=== PATIENT | female | born 1965 | race American Indian/Alaskan Native ===

== ENCOUNTER 2016-08-09 22:14 | Emergency (ER) | payer SELFPAY ==
[2016-08-09 22:52] LABS: Basophils % (Auto) 0.8 % (0.0-1.8); Eosinophils % (Auto) 2.6 % (0.0-4.3); Mean Corpuscular HGB Conc 33 % (30-34); Mean Corpuscular Hemoglobin 31 pg (28-32); Mean Corpuscular Volume 93 fl (79-97); Platelet Count 238 K/mm3 (140-440); Red Cell Distribution Width 13.5 % (13.2-15.2); White Blood Count 5.5 K/mm3 (4.5-11.0)
[2016-08-09 23:09] LABS: Alanine Aminotransferase 10 units/L (7-56); Albumin 4.3 g/dL (3.9-5); Albumin/Globulin Ratio 1.5 %; Alkaline Phosphatase 43 units/L (35-129); Anion Gap 17 mmol/L; BUN/Creatinine Ratio 17.77; Blood Urea Nitrogen 16 mg/dL (7-17); Calcium 9.6 mg/dL (8.4-10.2); Carbon Dioxide 27 mmol/L (22-30); Chloride 103.6 mmol/L (98-107); Glucose 102 mg/dL (65-100); Lipase 37 units/L (13-60); Potassium 4.5 mmol/L (3.6-5.0); Sodium 143 mmol/L (137-145); Total Protein 7.1 g/dL (6.3-8.2)
[2016-08-10 03:05] LABS: Bilirubin,Urine NEG (Negative); Blood,Urine SM (Negative); Ketones,Urine NEG (Negative); Leukocyte Esterase,Urine NEG (Negative); Nitrite,Urine NEG (Negative); Protein,Urine <15 mg/dL mg/dL (Negative); Urobilinogen,Urine < 2.0 mg/dL (<2.0)
[2016-08-10] MEDS ORDERED: ZOFRAN IV ONE (06:25)
[2016-08-10] MEDS ORDERED: MORPHINE IV ONE (06:25)
[2016-08-10] MEDS ORDERED: NACL ONE (06:32)
--- NOTE | 2016-08-10 07:00 | Emergency Department Report ---
ED Abdominal Pain HPI - General Chief Complaint: Abdominal Pain Stated Complaint: L SIDE ABD PAIN Time Seen by Provider: 08/10/16 06:10 Source: patient Mode of arrival: Ambulatory Limitations: No Limitations - History of Present Illness Initial Comments: 50-year-old female withno significant past medical history blood past surgical history appendectomy and tubal ligation presents to the hospital complains of left lower quadrant pain 2 months. Pain described as sharp, aching, and intermittent. Moderate to severe in intensity at times. Pain is becoming more frequent. Positive nausea. Patient denies other associated symptoms including fever, vomiting, dysuria, hematuria, weight loss, vaginal discharge, melena, hematochezia, diarrhea, or poor appetite. Last bm yesterday Severity scale (0 -10): 10 - Related Data Previous Rx's Medication Instructions Recorded Last Taken Type Ibuprofen [Motrin] 800 mg PO Q8HR PRN #30 tablet 08/10/16 Unknown Rx Polyethylene Glycol 3350 [Miralax 17 gm PO QDAY PRN #7 packet 08/10/16 Unknown Rx 3350] traMADol [Ultram 50 MG tab] 50 mg PO Q6HR PRN #14 tablet 08/10/16 Unknown Rx Allergies Allergy/AdvReac Type Severity Reaction Status Date / Time No Known Allergies Allergy Verified 08/10/16 06:37 ED Review of Systems ROS: Stated complaint: L SIDE ABD PAIN Other details as noted in HPI Comment: All other systems reviewed and negative Other: Constitutional: No fevers chills or weight loss Eyes: No eye pain visual changes or discharge ENT: No ear pain or throat pain Neck: Denies pain Respiratory: Denies cough wheezing shortness of breath at rest shortness of breath or exertion, orthopnea or PND Cardiovascular: Denies chest pain, palpitations, syncope Endocrine: Denies excessive sweating, intolerance to cold, increased thirst GI: Denies abdominal pain, nausea, vomiting, diarrhea, constipation : Denies dysuria, urinary frequency, or urgency Musculoskeletal: Denies back pain, joint swelling Skin: Denies rash, lesions, erythema Neurologic: Denies headache, numbness, weakness Psychiatric: Denies suicidal ideation, hallucinations Hematological/lymphatic: Denies easy bruising, lymphadenopathy ED Past Medical Hx - Past Medical History Previous Medical History?: No - Surgical History Past Surgical History?: Yes Hx Appendectomy: Yes Additional Surgical History: thyroidectomy, lipoma, tubaligation - Social History Smoking Status: Former Smoker Substance Use Type: None - Medications Home Medications: Home Medications Medication Instructions Recorded Confirmed Last Taken Type Ibuprofen [Motrin] 800 mg PO Q8HR PRN #30 tablet 08/10/16 Unknown Rx Polyethylene Glycol 3350 [Miralax 17 gm PO QDAY PRN #7 packet 08/10/16 Unknown Rx 3350] traMADol [Ultram 50 MG tab] 50 mg PO Q6HR PRN #14 tablet 08/10/16 Unknown Rx ED Physical Exam - General Limitations: No Limitations - Other Other exam information: General: No limitations, patient is alert in no acute distress Head exam: Atraumatic, normocephalic Eyes exam: Normal appearance, pupils equal reactive to light, extraocular movements intact ENT: Moist mucous membrane, normal oropharynx Neck exam: Normal inspection, full range of motion, no meningismus nontender Respiratory exam: Clear to auscultation bilateral, no wheezes, rales, crackles Cardiovascular: Normal rate and rhythm, normal heart sounds Abdomen: Soft, nondistended, left lower quadrant tenderness, with normal bowel sounds, no rebound, or guarding Extremity: Full range of motion normal inspection no deformity Back: Normal Inspection, full range of motion, no tenderness Neurologic: Alert, oriented x3, cranial nerves intact, no motor or sensory deficit Psychiatric: normal affect, normal mood Skin: Warm, dry, intact ED Course Vital Signs 08/09/16 08/10/16 08/10/16 22:20 03:29 03:46 Temperature 98.1 F 98.3 F Pulse Rate 60 80 Respiratory 18 16 Rate Blood Pressure 122/78 125/72 Blood Pressure 125/72 [Right] O2 Sat by Pulse 100 98 Oximetry 08/10/16 03:48 Temperature Pulse Rate Respiratory 16 Rate Blood Pressure Blood Pressure [Right] O2 Sat by Pulse 98 Oximetry - Reevaluation(s) Reevaluation #1: 08/10/16 07:01 Morphine and Zofran ordred for pain ED Medical Decision Making - Lab Data Result diagrams: 08/09/16 22:32 08/09/16 22:32 Lab Results 08/09/16 08/09/16 08/10/16 Range/Units 22:32 22:32 02:48 WBC 5.5 (4.5-11.0) K/mm3 RBC 4.20 (3.65-5.03) M/mm3 Hgb 13.0 (10.1-14.3) gm/dl Hct 39.0 (30.3-42.9) % MCV 93 (79-97) fl MCH 31 (28-32) pg MCHC 33 (30-34) % RDW 13.5 (13.2-15.2) % Plt Count 238 (140-440) K/mm3 Lymph % (Auto) 53.0 H (13.4-35.0) % [place] % (Auto) 6.6 (0.0-7.3) % Eos % (Auto) 2.6 (0.0-4.3) % Baso % (Auto) 0.8 (0.0-1.8) % Lymph # 2.9 (1.2-5.4) K/mm3 [place] # 0.4 (0.0-0.8) K/mm3 Eos # 0.1 (0.0-0.4) K/mm3 Baso # 0.0 (0.0-0.1) K/mm3 Seg Neutrophils % 37.0 L (40.0-70.0) % Seg Neutrophils # 2.1 (1.8-7.7) K/mm3 Sodium 143 (137-145) mmol/L Potassium 4.5 (3.6-5.0) mmol/L Chloride 103.6 (98-107) mmol/L Carbon Dioxide 27 (22-30) mmol/L Anion Gap 17 mmol/L BUN 16 (7-17) mg/dL Creatinine 0.9 (0.7-1.2) mg/dL Estimated GFR > 60 ml/min BUN/Creatinine Ratio 17.77 % Glucose 102 H (65-100) mg/dL Calcium 9.6 (8.4-10.2) mg/dL Total Bilirubin 0.20 (0.1-1.2) mg/dL AST 14 (5-40) units/L ALT 10 (7-56) units/L Alkaline Phosphatase 43 (35-129) units/L Total Protein 7.1 (6.3-8.2) g/dL Albumin 4.3 (3.9-5) g/dL Albumin/Globulin Ratio 1.5 % Lipase 37 (13-60) units/L Urine Color Yellow (Yellow) Urine Turbidity Clear (Clear) Urine pH 6.0 (5.0-7.0) Ur Specific [place] 1.016 (1.003-1.030) Urine Protein <15 mg/dl (Negative) mg/dL Urine Glucose (UA) Neg (Negative) mg/dL Urine Ketones Neg (Negative) mg/dL Urine Blood Sm (Negative) Urine Nitrite Neg (Negative) Urine Bilirubin Neg (Negative) Urine Urobilinogen < 2.0 (<2.0) mg/dL Ur Leukocyte Esterase Neg (Negative) Urine WBC (Auto) 1.0 (0.0-6.0) /HPF Urine RBC (Auto) 21.0 (0.0-6.0) /HPF U Epithel Cells (Auto) 1.0 (0-13.0) /HPF Urine HCG, Qual Negative (Negative) - Radiology Data Radiology results: report reviewed CT abdomen and pelvis IV contrast: Colonic constipation. 4 mm calculus in the region of the gallbladder neck no evidence of cholecystitis. Suspect fibroid uterus. Right ovary not seen. Tiny hepatic and splenic cyst - Medical Decision Making Patient has intrauterine fibroids with normal-appearing left ovary. She also be treated for constipation and informed of findings of cholelithiasis. Patient 's pain improved after meds. She will be discharged home and encouraged to follow-up with [facility] and PMD. No acute surgical or infectious emergency identified at this time and patient stable for outpatient follow-up - Differential Diagnosis diverticulitis, renal colic, ovarian cyst/mass Critical Care Time: No Critical care attestation.: If time is entered above; I have spent that time in minutes in the direct care of this critically ill patient, excluding procedure time. ED Disposition Clinical Impression: Fibroids, Cholelithiasis, Constipation Disposition: DISCHARGED TO HOME OR SELFCARE Is pt being admited?: No Does the pt Need Aspirin: No Condition: Stable Instructions: Constipation (ED), Biliary Colic (ED), Uterine Fibroids (ED) Additional Instructions: You have been provided ibuprofen and tramadol for pain. Please note that your CAT scan reveals constipation and tramadol may worsen constipation therefore, take only as needed for severe pain. CAT scan coincidently shows stones in the gallbladder. You don't have any symptoms of gallstones at this time. If symptoms develop please follow-up as indicated by your discharge papers. Your CAT scan also shows fibroids in your uterus. Please follow-up with [facility] for further management and outpatient ultrasound for further outpatient investigation Prescriptions: Ibuprofen [Motrin] 800 mg PO Q8HR PRN #30 tablet PRN Reason: Pain Polyethylene Glycol 3350 [Miralax 3350] 17 gm PO QDAY PRN #7 packet PRN Reason: Constipation traMADol [Ultram 50 MG tab] 50 mg PO Q6HR PRN #14 tablet PRN Reason: Pain Referrals: [facility] [Provider Group] - 3-5 Days (primary care clinic) GARCÍA MARTIN MD [Staff Physician] - 3-5 Days (bolt labeler doctor) AILIN SORENSEN MD [Staff Physician] - 3-5 Days (primary care doctor ) Time of Disposition: 08:04
--- NOTE | 2016-08-10 07:40 | Cat Scan Report ---
FINAL REPORT PROCEDURE: CT ABDOMEN PELVIS W CON TECHNIQUE: Computerized axial tomography of the abdomen and pelvis was performed after the IV injection of iodinated nonionic contrast. 100 milliliters Omnipaque 300 IV contrast was given. HISTORY: llq pain x 2 months COMPARISON: None FINDINGS: Visualized lower thorax: No significant abnormality. Liver: 5 millimeter dome cyst. Spleen: 5 millimeters cyst. Gallbladder and biliary system: 4 millimeter calculus in the region of the gallbladder neck. No evident cholecystitis or biliary ductal obstruction. Pancreas: Normal. Adrenals: Normal. Kidneys: Normal. GI tract: Limited in evaluation without oral contrast. No gross focal lesion. Colonic constipation. Lymph nodes and mesentery: Normal. Vasculature: Normal. Bladder: Normal. Reproductive organs: Suspect fibroid uterus. Unremarkable left ovary. Right ovary not definitely seen. Peritoneum: No free fluid. Musculoskeletal structures: No significant abnormality. Other: None. IMPRESSION: Colonic constipation 4 millimeter calculus in the region of the gallbladder neck. No evident cholecystitis. Suspect fibroid uterus. Right ovary not seen. Pelvic ultrasound is recommended for further evaluation. Tiny hepatic and splenic cysts.
[2016-08-10 08:16] VITALS: BP 127/73
== END 2016-08-10 08:21 | disposition home or self-care (01) ==
LOC: ED 22:14
DX: K80.20 Calculus of gallbladder without cholecystitis without obstruction (principal); D21.9 Benign neoplasm of connective and other soft tissue, unspecified; K59.00 Constipation, unspecified; Z87.891 Personal history of nicotine dependence; Z98.51 Tubal ligation status; Z90.49 Acquired absence of other specified parts of digestive tract
CPT/HCPCS: 36415; 74177; 80053; 81001; 81025; 83690; 85025; 96374; 96375; 99284; J2270; J2405; Q9967